=== PATIENT | male | born 1995 | race Caucasian/White ===

== ENCOUNTER 2017-11-26 12:17 | Emergency (ER) | payer OTHER ==
[~2017-11-26] VITALS: Ht 177.8 cm; Wt 74.8 kg
[~2017-11-26 12:17] MED LIST: NOHOMEMEDICATIONS
[2017-11-26] MEDS ORDERED: NORCO 5-325 TA1 EACH PO (14:00)
[2017-11-26 14:14] VITALS: BP 132/80
== END 2017-11-26 14:15 | disposition home or self-care (01) ==
LOC: M.ERS 12:17
DX: S62.336A Displaced fracture of neck of fifth metacarpal bone, right hand, initial encounter for closed fracture (principal); Z88.2 Allergy status to sulfonamides; Y04.8XXA Assault by other bodily force, initial encounter; Y93.89 Activity, other specified; Y92.89 Other specified places as the place of occurrence of the external cause; Y99.8 Other external cause status